=== PATIENT | female | born 1975 | race Caucasian/White ===

== ENCOUNTER → 2024-08-07 15:14 | Outpatient (REF) | payer BC, SELFPAY | LOC: WDC 15:14 | PROVIDERS: ATTENDING PHYSICIAN Nurse Practitioner Adult Health | DX: Z12.31 Encounter for screening mammogram for malignant neoplasm of breast (principal) | CPT/HCPCS: 77063; 77067 ==

== ENCOUNTER → 2024-08-28 07:46 | Outpatient (REF) | payer BC, SELFPAY | LOC: RAD 07:46 | PROVIDERS: ATTENDING PHYSICIAN Obstetrics & Gynecology Gynecology; FAMILY PHYSICIAN Nurse Practitioner Adult Health | DX: N93.9 Abnormal uterine and vaginal bleeding, unspecified (principal) | CPT/HCPCS: 76856 ==

== ENCOUNTER → 2025-09-17 13:10 | Outpatient (REF) | payer BC, SELFPAY | LOC: WDC 13:10 | PROVIDERS: ATTENDING PHYSICIAN Internal Medicine | DX: Z12.31 Encounter for screening mammogram for malignant neoplasm of breast (principal) | CPT/HCPCS: 77063; 77067 ==